=== PATIENT | female | born 1995 | race Caucasian/White ===

== ENCOUNTER 2016-11-07 19:45 | Emergency (ER) | payer BC, OTHER ==
[~2016-11-07] VITALS: Ht 165.1 cm; Wt 138.0 kg
[2016-11-07] MEDS ORDERED: CYCL10TA PO (21:36)
[2016-11-07] MEDS ORDERED: IBUP-1022 PO (21:36)
[2016-11-07] MEDS ORDERED: CYCLOBENZAPRINE 10 MG TAB PO ONE (21:45)
[2016-11-07] MEDS ORDERED: IBUPROFEN 800 MG TAB PO ONE (21:45)
[2016-11-07 21:46] VITALS: BP 123/56
== END 2016-11-07 21:47 | disposition home or self-care (01) ==
LOC: M ED 19:45
DX: S39.012A Strain of muscle, fascia and tendon of lower back, initial encounter (principal); X50.9XXA Other and unspecified overexertion or strenuous movements or postures, initial encounter; Y92.219 Unspecified school as the place of occurrence of the external cause; Y93.68 Activity, volleyball (beach) (court); Y99.9 Unspecified external cause status

== ENCOUNTER → 2017-06-21 | Outpatient (REF) | payer OTHER | LOC: M SFHCLERA 17:16 | DX: J02.9 Acute pharyngitis, unspecified (principal) ==

== ENCOUNTER → 2018-10-30 | Outpatient (REF) | payer OTHER ==
[~2018-10-30] MED LIST: CYCL10TA PO; IBUP-1022 PO
== END ==
LOC: M LAB REF 17:15
PROVIDERS: ATTEND Advanced Practice Midwife
DX: Z12.4 Encounter for screening for malignant neoplasm of cervix (principal)

== ENCOUNTER → 2018-12-15 | Outpatient (CLI) | payer OTHER ==
[2018-12-15 14:27] LABS: BASO % 0.3 % (0.0-1.0); EOS # 0.1 10^3/uL (0.0-0.5); HEMATOCRIT 35.7 % (36.0-47.0); HEMOGLOBIN 12.1 g/dl (12.0-15.5); LYMPH # 1.3 10^3/uL (1.5-5.0); LYMPH % 16.6 % (24.0-44.0); MEAN CORPUSCULAR HGB CONC 33.9 g/dl (32.0-36.5); MEAN CORPUSCULAR VOLUME 88.4 fl (80.0-96.0); MONO # 0.7 10^3/uL (0.0-0.8); MONO % 8.2 % (0.0-5.0); NEUTROPHILS # 5.8 10^3/uL (1.5-8.5); NEUTROPHILS % 73.5 % (36.0-66.0); PLATELET COUNT, AUTOMATED 205 10^3/uL (150-450); RED BLOOD COUNT 4.04 10^6/uL (4.00-5.40); WHITE BLOOD COUNT 7.9 10^3/uL (4.0-10.0)
[2018-12-15 16:12] LABS: CHLAMYDIA DNA AMPLIFICATION NEGATIVE (NEGATIVE); GC DNA AMPLIFICATION NEGATIVE (NEGATIVE)
[2018-12-16 10:58] LABS: HEPATITIS C VIRUS ABY INDEX 0.1 INDEX (<0.8); HIV 1&2 SCREEN CENTAUR NEGATIVE (NEGATIVE); RUBELLA IgG QUALITATIVE IMMUNE (IMMUNE)
== END ==
LOC: M LAB 13:03
PROVIDERS: ATTEND Advanced Practice Midwife
DX: Z34.81 Encounter for supervision of other normal pregnancy, first trimester (principal); Z3A.00 Weeks of gestation of pregnancy not specified

== ENCOUNTER → 2018-12-25 | Outpatient (CLI) | payer OTHER ==
--- NOTE | 2018-12-25 22:01 | REP ---
OB ULTRASOUND: Real-time sonographic evaluation of the gravid uterus is performed. There is a single living intrauterine gestation, estimated gestational age 17 weeks 6 days, EDC 05/29/2019. Today's measurements indicate appropriate growth. BPD 39 mm = 17 weeks 6 days, 51st percentile HC 157 mm = 18 weeks 4 days, 71st percentile AC 138 mm = 19 weeks 1 day, 78th percentile FL 29 mm = 18 weeks 6 days, 74th percentile HC/AC ratio 1.14, within normal range. Estimated weight 267 grams, 91st percentile. Cervix is closed and measures 4.6 cm in length. heart rate 157 beats per minute. SEEN/GROSSLY UNREMARKABLE Lateral ventricles yes Posterior fossa yes Upper lip yes Four-chamber heart no LVOT no RVOT no Stomach yes Cord insertion yes Three vessel cord yes Kidneys yes Bladder yes Spine yes position: breech. Placenta: Anterior and grade 0 with no previa or abruption. Amniotic fluid: Within normal limits. Electronically Signed by Jett Wooten MD 12/26/2018 03:36 P
== END ==
LOC: M RAD 14:10
PROVIDERS: ATTEND Advanced Practice Midwife
DX: Z34.82 Encounter for supervision of other normal pregnancy, second trimester (principal); Z3A.17 17 weeks gestation of pregnancy

== ENCOUNTER → 2019-02-04 | Outpatient (CLI) | payer OTHER ==
--- NOTE | 2019-02-04 14:40 | REP ---
Clinical: Anatomical evaluation. Comparison: 12/25/2018 . Findings: Examination demonstrates a single live intrauterine in cephalic presentation. motion is identified by technologist. Placenta is noted anterior and grade I without evidence for placenta previa or abruption. Amniotic fluid volume is normal. Cervix measures 4.0 cm in length and appears closed. Nuchal cord cannot be excluded. Gestational age by LMP 23 weeks 5 days with GEENA 05/29/2019 . Gestational age by current measurements 24 weeks 4 days with GEENA 05/23/2019 . FHR equals 128 beats per minute. Estimated weight 718 grams ( 73rd percentile). Anatomical assessment demonstrates normal structures including cranium, choroid plexus, cavum, cerebellum/posterior fossa, facial features, lungs, four-chamber heart/ventricular outflow tracts, diaphragm, stomach, cord insertion/three-vessel cord, kidneys/bladder, spine, and extremities. Impression: 1. Single live intrauterine in cephalic presentation demonstrating appropriate interval growth. 2. Anatomical assessment is complete and normal. 3. Nuchal cord cannot be excluded. Electronically Signed by Russel Gray MD 02/04/2019 02:32 P
== END ==
LOC: M RAD 13:45
PROVIDERS: ATTEND Advanced Practice Midwife
DX: Z34.02 Encounter for supervision of normal first pregnancy, second trimester (principal); Z3A.23 23 weeks gestation of pregnancy

== ENCOUNTER → 2019-03-05 | Outpatient (CLI) | payer OTHER ==
[2019-03-05 17:26] LABS: HEMATOCRIT 30.6 % (36.0-47.0); HEMOGLOBIN 10.1 g/dl (12.0-15.5); MEAN CORPUSCULAR HEMOGLOBIN 30.7 pg (27.0-33.0); PLATELET COUNT, AUTOMATED 231 10^3/uL (150-450); RED BLOOD COUNT 3.29 10^6/uL (4.00-5.40); WHITE BLOOD COUNT 9.3 10^3/uL (4.0-10.0)
== END ==
LOC: M PLALAB 14:18
PROVIDERS: ATTEND Obstetrics & Gynecology
DX: Z34.90 Encounter for supervision of normal pregnancy, unspecified, unspecified trimester (principal)

== ENCOUNTER → 2019-05-07 | Outpatient (REF) | payer OTHER | LOC: M SFHCWAGY 18:25 | PROVIDERS: ATTEND Advanced Practice Midwife | DX: Z36.85 Encounter for antenatal screening for Streptococcus B (principal) ==

== ENCOUNTER → 2019-05-10 | Outpatient (CLI) | payer OTHER ==
--- NOTE | 2019-05-10 11:13 | REP ---
STAT obstetric ultrasound for decreased movement, biophysical profile: There is a single intrauterine gestation in a vertex presentation. The heart rate is 138 beats per minute. The cervix is 3.2 cm. Gestational age by the first ultrasound is 37 weeks 2 days/GEENA 05/29/2019. Gestational age by LMP is 37 weeks 2 days/GEENA 05/29/2019. The placenta is anterior. There is no previa or abruptio. The placenta is grade II. The amniotic fluid index is 13.0 (7.4 - 24.3). biophysical profile: Breathing 2.0 Movement 2.0 Tone 2.0 AFV 2.0 Total 8.0 / 8.0 Electronically Signed by Jett Díaz MD 05/10/2019 11:04 A
== END ==
LOC: M WHC 10:02
PROVIDERS: ATTEND Advanced Practice Midwife
DX: O36.8130 Decreased fetal movements, third trimester, not applicable or unspecified (principal); Z3A.00 Weeks of gestation of pregnancy not specified

== ENCOUNTER 2019-05-18 04:04 | Inpatient (IN) | payer OTHER ==
[~2019-05-18] VITALS: Ht 165.1 cm; Wt 77.0 kg
[2019-05-18] VITALS (53 sets, daily range): BP systolic 107–141; BP diastolic 55–86
[2019-05-18] MEDS: LACTATED RINGER'S 1000 ML IV STA ×2 (05:42→11:08)
[2019-05-18] MEDS ORDERED: LR 1,000 ML IV SCH ×2 (05:42→20:00)
--- NOTE | 2019-05-18 06:35 | HPEPDOC ---
Obstetrical History & Physical General Date of Admission May 18, 2019 at 05:40 Primary Care Physician: BRAD PERERA CNM History of Present Illness Patient is a 23-year-old female who is a at 38.4 weeks gestation with an GEENA of 05/28/2019 based off of her LMP and consistent with her first trimester ultrasound. She initiated care in her first trimester with [facility]. Her has been uncomplicated. She presents to L&D with contractions and bloody show. She denied leaking of fluid but appears moist with exam. She reports active movement. Chief Complaint: Contractions, term, Rupture of membranes Information Provided By: Patient Age: 23 : 1 Term: 0 Pre-term: 0 Abortions: 0 Livin Care Care: Limited Care Dating Final EDC: May 28, 2019 Final EDC by: LMP LMP: Aug 21, 2018 EGA at Admission: 38.4 Antepartum Course Height (inches): 65 Pre- weight (lbs.): 150 Admission Weight (lbs.): 170 Change in Weight (lbs.): 20 Past Medical History Past Obstetrical History : Past Obstetrical History: [employer] History: No pertinent history Past Medical History Medical History no current medical conditions Surgical History: Denies/None Social History Marital Status: Family situation: Spouse/partner home Psychosocial History: No pertinent psych hx * Smoker: non-smoker Alcohol: Denies Drugs: denies Abuse Violence Screening Have you been hit/kicked/slapp: No Have you been sexually assault: No Allergies Coded Allergies: No Known Allergies (Unverified , 11/07/16) Medications Scheduled PRN Cyclobenzaprine HCl (Cyclobenzaprine HCl) 10 Mg Tab, 10 MG PO TID PRN for MUSCLE SPASMS Ibuprofen (Ibuprofen) 600 Mg Tab, 600 MG PO Q6H PRN for PAIN Physical Examination Physical Examination GENERAL: Alert and oriented times three. BREAST: . ABDOMEN: Gravid and non-tender to touch. FETUS: Is vertex (VTX) by sterile vaginal examination (SVE), fetus is vertex (VTX) by Dariel. HEART RATE: Regular rate and rhythm. LUNGS: Clear to auscultation (CTA). EXTREMITIES: No edema. No clonus. Deep tendon reflexes (DTRs) + . Vital Signs/I&O Vital Signs Date Time Temp Pulse Resp B/P (MAP) Pulse Ox O2 Delivery O2 Flow Rate FiO2 05/18/19 04:33 98.5 90 133/75 (94) Laboratory Data 24H [facility] Laboratory Tests 2 05/18/19 06:13: Serology Scanned Report Hepatitis B Testing Pertinent Laboratoy Data Blood Type: A+ RBC Antibody Screen: Negative HIV: Negative Hepatitis B: Negative Hepatitis C: Negative Rapid Plasma Reagin: Nonreactive Rubella: Immune Chlamydia/Gonorrhea: Negative Group B Streptococcus: Negative Glucose Tolerance Test: 74 Anatomy Ultrasound Placenta Location: Anterior Normal Anatomy: Yes Placenta Previa: No Vaginal Examination Dilation: 1cm (1-2 cm) Effacement: 90% Station: -1 (small amount of clear fluid noted after exam. + Nitrazine) Cervical Consistency: Soft Cervical Position: Anterior Presentation: Cephalic presentation Position: Vertex (occiput) Assessment Heart Rate (FHR): 130 Variability: Moderate Accelerations: Positive Decelerations: None Tocometer Contractions: Yes Frequency: regular Strength: palpated as mild Assessment/Plan Assessment IUP at 38.4 weeks gestation Spontaneous rupture of membranes GBS negative Category I FHR tracing. Plan Admit to L&D. OOB ad loi Diet: clears. Group B Streptococcus (GBS) negative. Labs and intravenous (IV) per unit protocol. Anesthesia consult per patient's request. Lactated Ringers (LR): Bolus 800 mL prior to epidural then at 125 mL/hr. Anticipate cervical change. C-S as appropriate. BRAD PERERA CNM May 18, 2019 06:35
[2019-05-18 06:41] LABS: HEMATOCRIT 32.7 % (36.0-47.0); HEMOGLOBIN 10.4 g/dl (12.0-15.5); MEAN CORPUSCULAR HEMOGLOBIN 26.7 pg (27.0-33.0); MEAN CORPUSCULAR HGB CONC 31.8 g/dl (32.0-36.5); MEAN CORPUSCULAR VOLUME 84.1 fl (80.0-96.0); PLATELET COUNT, AUTOMATED 250 10^3/uL (150-450); RED BLOOD COUNT 3.89 10^6/uL (4.00-5.40); WHITE BLOOD COUNT 14.7 10^3/uL (4.0-10.0)
[2019-05-18] MEDS ORDERED: LACTATED RINGER'S 1000 ML IV STA (11:07)
[2019-05-18] MEDS ORDERED: OXYTOCIN DRIP 30 UNITS in IV 1 EA IV SCH ×2 (11:15→20:00)
[2019-05-18] MEDS ORDERED: FENTANYL 2MCG/ML ROPIVACAINE 0.2% IN 0.9% NACL 100ML IVBAG As Ordered ONE (13:02)
[2019-05-18] MEDS ORDERED: REFRIGERATOR IV KEYS XX PRN (13:45)
[2019-05-18] MEDS ORDERED: FENTANYL/ROPIVACAINE/NACL BAG 100 ML EPIDURAL SCH (13:45)
[2019-05-18] MEDS ORDERED: ePHEDrine SULFATE 25 MG/5 ML(5MG/ML) SYRINGE IV PRN (13:45)
[2019-05-18] MEDS ORDERED: NALOXONE INJ 0.4 MG/1 ML VIAL (J2310) IV PRN (13:45)
[2019-05-18] MEDS ORDERED: EPIDURAL/PCA KEYS XX PRN (13:45)
[2019-05-18] MEDS ORDERED: ONDANSETRON 4MG/2ML VIAL (J2405) IV PRN ×2 (13:45→19:15)
[2019-05-18] MEDS ORDERED: EPIDURAL COMMENT XX SCH (13:45)
[2019-05-18] MEDS ORDERED: LACTATED RINGER'S 1000 ML IV PRN (13:45)
[2019-05-18] MEDS ORDERED: diphenhydrAMINE INJ 50MG/ML VIAL (J1200) IV PRN (13:45)
[2019-05-18] MEDS ORDERED: ACETAMINOPHEN 500 MG TAB PO PRN (19:15)
[2019-05-18] MEDS ORDERED: PROMETHAZINE 25 MG TAB PO PRN (19:15)
[2019-05-18] MEDS ORDERED: DOCUSATE SODIUM 100 MG CAP PO PRN (19:15)
[2019-05-18] MEDS ORDERED: ACETAMINOPHEN TAB 650MG DOSE (2X325MG) PO PRN (19:15)
[2019-05-18] MEDS ORDERED: DIBUCAINE 1% OINTMENT 30GM TOP PRN (19:15)
[2019-05-18] MEDS ORDERED: IBUPROFEN 600 MG TAB PO PRN (19:15)
[2019-05-18] MEDS ORDERED: MEASLES,MUMPS,RUBELLA VACCINE INJ (MMR-II) (90707) SC SCH (20:00)
[2019-05-18] MEDS ORDERED: RHOGAM 300 MCG (1500 IU) INJ (J2790) IM SCH (20:00)
[2019-05-18] MEDS: IBUPROFEN 800 MG TAB PO PRN (21:07)
[2019-05-19 05:54] VITALS: BP 113/58
[2019-05-19] MEDS: IBUPROFEN 800 MG TAB PO PRN ×2 (07:53→22:03)
[2019-05-19] MEDS: PRENATAL VITAMINS CHEWABLE TABLET PO SCH (14:54)
[2019-05-19 18:00] VITALS: BP 121/70
[2019-05-20 06:00] VITALS: BP 115/70
[2019-05-20] MEDS: PRENATAL VITAMINS CHEWABLE TABLET PO SCH (08:05)
== END 2019-05-20 12:14 | disposition home or self-care (01) | DRG 807 ==
LOC: M LDO 04:04 → M LDI 05:40 → M OBS 21:54
PROVIDERS: ADMIT Advanced Practice Midwife; ATTEND Obstetrics & Gynecology
PROC: 10E0XZZ Delivery of Products of Conception, External Approach (ICD-10-PCS; principal; 2019-05-18)
PROC: 0HQ9XZZ Repair Perineum Skin, External Approach (ICD-10-PCS; 2019-05-18)
DX: O42.02 Full-term premature rupture of membranes, onset of labor within 24 hours of rupture (principal); Z37.0 Single live birth; Z3A.38 38 weeks gestation of pregnancy; O69.81X0 Labor and delivery complicated by cord around neck, without compression, not applicable or unspecified; O70.0 First degree perineal laceration during delivery